=== PATIENT | male | born 1985 | race Caucasian/White ===

== ENCOUNTER 2024-02-24 16:16 | Inpatient (IN) ==
[2024-02-24 17:37] LABS: ABS Basophils 0.1 10^3/uL (0.0-0.1); ABS Eosinophils 0.6 10^3/uL (0.0-0.5); ABS Lymphocytes 4.4 10^3/uL (1.0-4.8); ABS Monocytes 0.9 10^3/uL (0.0-1.1); ABS Neutrophils 7.1 10^3/uL (1.5-7.6); Eosinophil % 4.5 %; Hematocrit 42.7 % (38-53); Hemoglobin 14.5 g/dL (13.2-16.3); Lymphocyte % 33.8 %; Mean Corpuscular Hemoglobin 32.3 pg (27-33); Mean Corpuscular Volume 94.8 fL (80-97); Mean Platelet Volume 8.3 fL (7.5-11.2); Platelet Count 328 10^3/uL (150-450); Red Cell Distribution Width 13.6 % (12-17)
[2024-02-24 17:50] LABS: Urine Appearance Clear; Urine Bilirubin Negative (Negative); Urine Blood Negative (Negative); Urine Color Light-Yellow; Urine Glucose Negative (Negative); Urine Ketones Negative (Negative); Urine Nitrite Negative (Negative); Urine Protein Negative (Negative); Urine Specific Gravity 1.008 (1.002-1.030); Urine Urobilinogen Negative (Negative); Urine pH 5.5 (5.0-8.0)
[2024-02-24 17:53] LABS: Urine Benzodiazepine Screen None Detected (None Detect); Urine Cannabinoids Screen Presumptive Positive (None Detect); Urine Opiates Screen None Detected (None Detect)
[2024-02-24 18:24] LABS: TSH Ultra Thyroid Stim Horm 0.59 mcIU/mL (0.34-5.60)
[2024-02-24 20:00] LABS: ALT 12 U/L (7-52); AST 18 U/L (13-39); Acetaminophen < 15 mcg/mL; Albumin 5.1 g/dL (3.2-5.2); Alcohol, S 206 mg/dL (<13); Alkaline Phosphatase 51 U/L (35-149); Anion Gap 17 mmol/L (2-16); Blood Urea Nitrogen 12 mg/dL (6-24); CO2 Carbon Dioxide 16 mmol/L (22-32); Calcium 9.4 mg/dL (8.6-10.3); Chloride 110 mmol/L (101-111); Creatinine, Serum 1.12 mg/dL (0.67-1.17); Globulin 2.6 g/dL (2-4); Glucose 104 mg/dL (70-100); Potassium 4.2 mmol/L (3.5-5.0); Salicylate < 2.50 mg/dL (<30); Sodium 143 mmol/L (135-145); Total Bilirubin 0.4 mg/dL (0.2-1.0); Total Protein 7.7 g/dL (6.4-8.9); eGFR CKD-EPI 87.3 (>60)
[2024-02-24] MEDS ORDERED: Al Hydrox/Mg Hydrox/Simet LIQ 30 ML UDC PO PRN (22:57)
[2024-02-25 08:00] LABS: ABS Basophils 0.1 10^3/uL (0.0-0.1); ABS Eosinophils 0.5 10^3/uL (0.0-0.5); ABS Lymphocytes 2.9 10^3/uL (1.0-4.8); ABS Monocytes 1.2 10^3/uL (0.0-1.1); ABS Neutrophils 8.9 10^3/uL (1.5-7.6); ABS Nucleated RBC 0.01 10^3/ul; Eosinophil % 3.5 %; Hematocrit 40.6 % (38-53); Hemoglobin 13.8 g/dL (13.2-16.3); Lymphocyte % 21.7 %; Mean Corpuscular Hemoglobin 32.1 pg (27-33); Mean Corpuscular Hgb Conc 33.9 g/dL (31-36); Mean Corpuscular Volume 94.7 fL (80-97); Mean Platelet Volume 8.4 fL (7.5-11.2); Nucleated Red Blood Cells % 0.1 %/100WBC (0.0-0.8); Platelet Count 283 10^3/uL (150-450); Red Blood Count 4.29 10^6/uL (4.06-5.63); Red Cell Distribution Width 14.1 % (12-17); White Blood Count 13.6 10^3/uL (3.6-10.2)
[2024-02-25 08:35] LABS: Albumin 4.7 g/dL (3.2-5.2); Albumin/Globulin Ratio 1.8 (1-3); Calcium 9.3 mg/dL (8.6-10.3); Creatinine, Serum 0.99 mg/dL (0.67-1.17); Globulin 2.6 g/dL (2-4); Potassium 4.4 mmol/L (3.5-5.0); Total Protein 7.3 g/dL (6.4-8.9); eGFR CKD-EPI 101.2 (>60)
[2024-02-25] MEDS: Vitamin THERAPEUTIC TAB PO SCH (09:30)
[2024-02-25 12:38] VITALS: BP 118/75
== END 2024-02-25 15:50 | disposition home or self-care (01) | DRG 897 ==
LOC: ED 16:16 → EDHOLD 22:57 → BSU 23:46
PROVIDERS: ADMIT Psychiatry & Neurology Psychiatry; ATTEND Psychiatry & Neurology Psychiatry